=== PATIENT | male | born 1985 | race Caucasian/White ===

== ENCOUNTER → 2017-01-18 | Outpatient (CLI) | payer OTHER ==
--- NOTE | 2017-01-18 19:57 | CONS ---
DATE: 01/18/2017 CONSULTATION/NEW PATIENT EVALUATION HISTORY OF PRESENT ILLNESS/SLEEP-WAKE EVALUATION: A 31-year-old gentleman who has been re-evaluated the sleep center for possible obstructive sleep apnea-hypopnea syndrome. SLEEP SCHEDULE: Patient's usual sleep schedule on working days from 10:00 p.m. to 7:00 a.m., on the weekend from around 11:00 to midnight until 7:00 or 7:30 a.m. FALLING ASLEEP: No problem with falling asleep. No TV in bedroom. DURING SLEEP: Patient usually sleeps on the side position. According to his , he snores and has episodes of stopped breathing during sleep. He wakes up from sleep up to 3 times with up to 3 episodes of nocturia. No history of hypnagogical hallucinations, sleep paralysis or cataplexy. DURING THE DAY/WAKE STATE: In the morning, patient wakes up tired. [place] Sleepiness Scale increased to 12. He may worry about his sleep, has problems with memory, irritability. PAST MEDICAL HISTORY: Positive for recent upper respiratory infection. MEDICATION: Adipex with a goal to lose weight. SOCIAL HISTORY: Negative for smoking or using alcohol. REVIEW OF SYSTEMS: Awakenings from sleep, sleepiness during the day. FAMILY HISTORY: Acid reflux, during sleep. PHYSICAL EXAMINATION: GENERAL: A 31-year-old gentleman without distress. VITAL SIGNS: BP 120/72, HR 86, RR 16. Height 5 feet 10 inches. Weight 208, BMI 29.8. Neck 15 inches in circumference. Temp 98.9. Oxygen saturation at room air 98%. HEENT: PERRLA, EOMI. Evaluation of oropharynx showed tongue protrudes midline, extremely low position of soft palate, nasal septum deviation, restriction of nasal breathing on the left side. NECK: Supple. No JVD. Thyroid is not palpable. LUNGS: Clear to percussion and to auscultation. Good air exchange. A few rhonchi on the left side. HEART: S1, S2 regular. No murmurs, gallops or rubs. ABDOMEN: Soft and nontender. Bowel sounds are present. No organomegaly appreciated. EXTREMITIES: No clubbing or cyanosis. BODY FINISHER: Awake, alert, and oriented x3. Cranial nerves 2 to 7 intact. There is no fasciculation or atrophy noted. No focal deficits observed. IMPRESSION: 1. Snoring, witnessed episodes of stopped breathing during sleep, extremely low position of soft palate, restriction of nasal breathing, sleepiness, obstructive sleep apnea-hypopnea syndrome. 2. Nasal septum deviation with restriction of nasal breathing, mostly on the left side. 3. Overweight, body mass index 29.8. 4. Sleepiness. [place] Sleepiness Scale increased to 12. PLAN: 1. Polysomnography for evaluation of patient's breathing during sleep. 2. CPAP/BiPAP titration if sleep study confirms obstructive sleep apnea-hypopnea syndrome. 3. Preferable position during sleep on the side. 4. No driving if patient feels any sleepiness. Patient is aware of civil and criminal liability for unsafe driving. 5. I will see patient for follow-up visit to explain results of the testing and following plan. Thank you very much for referring this patient for consultation. Sincerely, Louis Urbina MD, PhD, FAASM. Diplomat of [employer] [employer], Sleep Medicine Board by [employer] [place] [employer] [place] [employer] [facility] [place]
== END | disposition home or self-care (01) ==
LOC: SLEEP 15:20
PROVIDERS: ATTEND Internal Medicine
DX: G47.33 Obstructive sleep apnea (adult) (pediatric) (principal); J34.2 Deviated nasal septum; E66.3 Overweight; Z68.29 Body mass index [BMI] 29.0-29.9, adult
CPT/HCPCS: 99211

== ENCOUNTER 2019-07-16 09:47 | Emergency (ER) | payer OTHER ==
[2019-07-16 09:52] VITALS: BP 135/92; PULSE 64; RESP 18; TEMP 98.1
[2019-07-16] MEDS ORDERED: PROPARACAINE 0.5% OPHTH DROPS 15 ML BTL BOTH EYES STA (10:09)
[2019-07-16] MEDS ORDERED: LIDOCAINE 1% INJ 10MG/ML (20 ML MDV) SQ ONE (10:30)
[2019-07-16] MEDS ORDERED: DIPH,PERTUS(ACELL)TETVAC-LF 0.5 ML VIAL IM ONE (10:30)
[2019-07-16] MEDS ORDERED: ERYTHROMYCIN 5 MG/GM OPHTH OINT 3.5 GM TUBE RIGHT EYE STA (10:32)
--- NOTE | 2019-07-16 10:33 | ED ---
General Adult HPI - General Chief complaint: Extremity Injury, Lower Stated complaint: knee lac & FB in eye Time Seen by Provider: 07/16/19 10:05 Source: patient, RN notes reviewed Mode of arrival: ambulatory Limitations: no limitations - History of Present Illness Initial comments: 33-year-old male without any significant past medical history presents to the emergency department for multiple complaints. 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 States it might need stitches. Patient is not sure when his last tetanus shot was. Denies any difficulty moving the left lower extremity. Denies any other injuries. However yesterday does admit to getting something in his right eye when he was outside working in the garage. States he thinks he got it out but his right eye is still irritated. Denies any visual changes. Denies any contact use. Patient has no other complaints at this time including shortness of breath, chest pain, abdominal pain, nausea or vomiting, headache, or visual changes. - Related Data Home Medications Medication Instructions Recorded Confirmed No Known Home Medications 08/08/15 07/16/19 Allergies Allergy/AdvReac Type Severity Reaction Status Date / Time No Known Allergies Allergy Verified 07/16/19 10:05 Review of Systems ROS Statement: Those systems with pertinent positive or pertinent negative responses have been documented in the HPI. ROS Other: All systems not noted in ROS Statement are negative. Past Medical History Past Medical History: No Reported History History of Any Multi-Drug Resistant Organisms: None Reported Past Surgical History: No Surgical Hx Reported Past Psychological History: No Psychological Hx Reported Smoking Status: Never smoker Past Alcohol Use History: None Reported Past Drug Use History: Marijuana General Exam Limitations: no limitations General appearance: alert, in no apparent distress Head exam: Present: atraumatic, normocephalic, normal inspection Eye exam: Present: PERRL, EOMI, conjunctival injection (Right eye has erythema noted to the conjunctiva with sparing of the limbus.). Absent: scleral icterus, periorbital swelling ENT exam: Present: normal exam, mucous membranes moist Neck exam: Present: normal inspection. Absent: tenderness, meningismus, lymphadenopathy Respiratory exam: Present: normal lung sounds bilaterally. Absent: respiratory distress, wheezes, rales, rhonchi, stridor Cardiovascular Exam: Present: regular rate, normal rhythm, normal heart sounds. Absent: systolic murmur, diastolic murmur, rubs, gallop, clicks GI/Abdominal exam: Present: soft, normal bowel sounds. Absent: distended, tenderness, guarding, rebound, rigid Extremities exam: Present: full ROM (Full range of motion of the left knee.), normal capillary refill (Capillary refill less than, DP pulse 2+ in the left lower extremity.), other (Patient is a 3 cm laceration noted to the anterior left knee that is gaping in nature. No obvious foreign body evident.) Course Vital Signs 07/16/19 09:49 Temperature 98.1 F Pulse Rate 64 Respiratory 18 Rate Blood Pressure 135/92 O2 Sat by Pulse 99 Oximetry Medical Decision Making - Medical Decision Making 33-year-old male without any significant past medical history presents for multiple complaints. Patient's first complaint is a laceration of the left knee. 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 On exam he does have a 3 cm laceration noted on the anterior aspect of the left knee. This was cleaned thoroughly with saline pressure irrigation. 6 sutures were applied. There is no evidence of foreign body or de ep structure injury. X-ray negative for acute process or foreign bodies. Discussed return precautions including those for infection. Patient also complaining of foreign body sensation in the right eye. States he had something in his eye yesterday that he was able to remove. On exam there is conjunctival injection of the right eye. Patient states the pain feels like it is a scratch. No evidence for foreign body including under both eyelids. The eye was numbed with proparacaine which completely limited his symptoms. Fluorescein stain and Wood's lamp was used to visualize a very small abrasion noted at 7:00 in the right eye. Patient was updated on tetanus and given erythromycin ointment. Given ophthalmology follow-up. Recommend he return if he has any worsening symptoms. Disposition Clinical Impression: Laceration, Corneal abrasion, right Disposition: HOME SELF-CARE Condition: Good Instructions (If sedation given, give patient instructions): Care For Your Stitches (ED), Laceration (ED), Corneal Abrasion (ED) Additional Instructions: Please use antibiotic ointment in the right eye 4 times daily for 7 days. Please keep laceration of the knee clean. monitor for signs of infection such as spreading redness, drainage, or fever. Return in 7-10 days for suture removal. Return earlier if you have any worsening symptoms. Follow-up with primary care and ophthalmology. Is patient prescribed a controlled substance at d/c from ED?: No Referrals: Nicole Corona MD [REFERRING] - 1-2 days Jackson Stack MD [STAFF PHYSICIAN] - 1-2 days Time of Disposition: 11:36
--- NOTE | 2019-07-16 11:20 | XR ---
EXAMINATION TYPE: XR knee complete LT DATE OF EXAM: 07/16/2019 COMPARISON: None HISTORY: Laceration TECHNIQUE: Three-view left knee FINDINGS: No acute fractures or dislocations are evident. Psoas joint spaces are preserved. No joint effusion is evident. Soft tissues appear normal. No radiopaque foreign bodies are evident. IMPRESSION: 1. No radiopaque foreign body post injury. 2. Osseous structures appear intact.
== END 2019-07-16 11:52 | disposition home or self-care (01) ==
LOC: EC 09:47
DX: S81.012A Laceration without foreign body, left knee, initial encounter (principal); S05.01XA Injury of conjunctiva and corneal abrasion without foreign body, right eye, initial encounter; Z23 Encounter for immunization
CPT/HCPCS: 99283; 12002; 90471; 73562; 90715; J2001